=== PATIENT | male | born 1985 | race Caucasian/White ===

== ENCOUNTER 2016-11-01 22:54 | Inpatient (IN) | payer BC ==
[~2016-11-01] VITALS: Ht 182.9 cm; Wt 120.0 kg
[~2016-11-01 22:54] MED LIST: ACET-1311 PO; CTP1 PO; FLUO20CA35 PO; FLUO40CA8 PO; MTR800 PO; MULT-506 PO; NRN600 PO; ZFR8 PO
[2016-11-01] MEDS ORDERED: SODIUM CHLORIDE 0.9% 1000ML 1,000 ML IV STA (23:12)
[2016-11-01] MEDS ORDERED: DILTIAZEM HCL 5 MG/ML 5 ML VIAL IV STA (23:12)
--- NOTE | 2016-11-01 23:14 | EMERGENCY ROOM VISIT NOTE ---
History Report prepared by Lavelle: David Flanagan Under the Supervision of: Dr. Kory Garibay M.D. First contact with patient: 23:03 Chief Complaint: CARDIAC ASSESSMENT Stated Complaint: SVT/A-FIB History of Present Illness The patient is a 31 year old male with a history of atrial fibrillation who presents to the Emergency Room with complaints of an episode of supraventricular tachycardia and subsequent atrial fibrillation that occurred around 0500 this morning. The patient says that he was doing cardio this morning at the gym when supraventricular tachycardia kicked in. He states that it then triggered atrial fibrillation. The patient notes that he went into SVT at the gym yesterday as well. Currently, he says that he feels extremely uncomfortable and is short of breath, especially with movement. The patient states that he is exhausted easily. He says that he goes into SVT sometimes, but atrial fibrillation rarely. 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 He says that he does cardio every morning. The patient notes that he has been working a lot lately, and has not been sleeping much. He has sleep apnea. The patient states that he is on testosterone. He took Metoprolol tartrate 200 mg today, as well as Diltiazem 120 mg x2 today. The patient says that he is not on any blood thinners, and he denies any recent drug use. The patient has not had any major recent travels. He denies any pain, including abdominal pain or leg swelling. The patient has no history of blood clots, or family history of blood clots. He was admitted last year for rhabdomyolysis. He denies any recent diuretic use. Source of History: patient Onset: 0500 this morning Position: other (heart ) Quality: other (SVT, Afib) Timing: other (episode) Associated Symptoms: + SOB, + fatigue, No abdominal pain Note: Associated symptoms: Denies leg swelling. Review of Systems See HPI for pertinent positives & negatives. A total of 10 systems reviewed and were otherwise negative. Past Medical & Surgical Medical Problems: (1) Atrial fibrillation (2) Discomfort of both eyes (3) Eye irritation (4) major depreesive dis (5) past psych meds (6) Rhabdomyolysis (7) Rhabdomyolysis (8) Superficial punctate keratitis Family History FH: hypertension Heart disease Social History Smoking Status: Current Every Day Smoker Drug Use: other Marital Status: single Occupation Status: employed Current/Historical Medications Scheduled Fluoxetine (Prozac), 40 MG PO DAILY Fluoxetine (Prozac), 20 MG PO DAILY Gabapentin (Gabapentin), 600 MG PO AMPM Multivitamin (Multivitamin), 1 TAB PO DAILY Naltrexone Hcl (Naltrexone Hcl), 50 MG PO QPM Paroxetine (Paxil), 10 MG PO QAM Allergies Coded Allergies: No Known Allergies (Verified , 01/12/16) Physical Exam Vital Signs Date Time Temp Pulse Resp B/P (MAP) Pulse Ox O2 Delivery O2 Flow Rate FiO2 11/02/16 01:49 70 18 118/58 96 CPAP 11/02/16 00:42 75 18 128/68 96 Room Air 11/01/16 23:26 94 20 124/48 99 Room Air 11/01/16 23:08 111 11/01/16 22:59 36.9 72 20 138/77 96 Room Air Physical Exam GENERAL: Patient is tired and anxious appearing and in mild distress. Heavily muscled. HEENT: No acute trauma, normocephalic atraumatic, mucous membranes moist, no nasal congestion, no scleral icterus. NECK: No stridor, no adenopathy, no meningismus, trachea is midline. LUNGS: Mildly dyspneic. Clear to auscultation and equal bilaterally. No wheeze, no rhonchi. HEART: Tachycardic and irregular. No murmurs, rubs, gallops appreciated. ABDOMEN: Soft, nontender, bowel sounds positive, no masses appreciated, no peritonitis. BACK: No midline tenderness, no CVA tenderness EXTREMITIES: Normal motion all extremities, no cyanosis, no edema. NEUROLOGIC: Alert and oriented, no acute motor or sensory deficits, no focal weakness, cranial nerves grossly intact. SKIN: No rash, no jaundice, no diaphoresis. Medical Decision & Procedures ER Provider Diagnostic Interpretation: X ray results are stated below per my interpretation: Chest: 1 view: No infiltrate, no effusion, normal cardiac border. Laboratory Results 11/01/16 23:10 Red Blood Count 5.32, Mean Corpuscular Volume 86.1, Mean Corpuscular Hemoglobin 29.3, Mean Corpuscular Hemoglobin Concent 34.1, Mean Platelet Volume 9.1, Neutrophils (%) (Auto) 63.7, Lymphocytes (%) (Auto) 23.3, Monocytes (%) (Auto) 9.2, Eosinophils (%) (Auto) 2.7, Basophils (%) (Auto) 0.4, Neutrophils # (Auto) 7.64, Lymphocytes # (Auto) 2.79, Monocytes # (Auto) 1.10, Eosinophils # (Auto) 0.32, Basophils # (Auto) 0.05 11/01/16 23:10 11/02/16 00:30 Test 11/01/16 23:10 11/01/16 23:30 11/02/16 00:30 White Blood Count 11.98 K/uL (4.8-10.8) Red Blood Count 5.32 M/uL (4.7-6.1) Hemoglobin 15.6 g/dL (14.0-18.0) Hematocrit 45.8 % (42-52) Mean Corpuscular Volume 86.1 fL (80-100) Mean Corpuscular Hemoglobin 29.3 pg (25-34) Mean Corpuscular Hemoglobin Concent 34.1 g/dl (32-36) Platelet Count 404 K/uL (130-400) Mean Platelet Volume 9.1 fL (7.4-10.4) Neutrophils (%) (Auto) 63.7 % Lymphocytes (%) (Auto) 23.3 % Monocytes (%) (Auto) 9.2 % Eosinophils (%) (Auto) 2.7 % Basophils (%) (Auto) 0.4 % Neutrophils # (Auto) 7.64 K/uL (1.4-6.5) Lymphocytes # (Auto) 2.79 K/uL (1.2-3.4) Monocytes # (Auto) 1.10 K/uL (0.11-0.59) Eosinophils # (Auto) 0.32 K/uL (0-0.5) Basophils # (Auto) 0.05 K/uL (0-0.2) RDW Standard Deviation 48.6 fL (36.4-46.3) RDW Coefficient of Variation 15.4 % (11.5-14.5) Immature Granulocyte % (Auto) 0.7 % Immature Granulocyte # (Auto) 0.08 K/uL (0.00-0.02) Anion Gap 6.0 mmol/L (3-11) Est Creatinine Clear Calc Drug Dose 116.2 ml/min Estimated GFR () 91.5 Estimated GFR (Non- 79.0 BUN/Creatinine Ratio 14.9 (10-20) Calcium Level 9.0 mg/dl (8.5-10.1) Phosphorus Level 3.3 mg/dl (2.5-4.9) Creatine Kinase MB 11.5 ng/ml (0.5-3.6) Creatine Kinase MB Ratio (0-3.0) Troponin I 0.038 ng/ml (0-0.045) Urine Color YELLOW Urine Appearance CLEAR (CLEAR) Urine pH 5.5 (4.5-7.5) Urine Specific [place] 1.033 (1.000-1.030) Urine Protein 1+ (NEG) Urine Glucose (UA) NEG (NEG) Urine Ketones NEG (NEG) Urine Occult Blood TRACE (NEG) Urine Nitrite NEG (NEG) Urine Bilirubin NEG (NEG) Urine Urobilinogen NEG (NEG) Urine Leukocyte Esterase NEG (NEG) Urine WBC (Auto) 1-5 /hpf (0-5) Urine RBC (Auto) 0-4 /hpf (0-4) Urine Hyaline Casts (Auto) 1-5 /lpf (0-5) Urine Epithelial Cells (Auto) 5-10 /lpf (0-5) Urine Bacteria (Auto) NEG (NEG) Urine Opiates Screen NEG (NEG) Urine Methadone, Qualitative NEG (NEG) Urine Barbiturates NEG (NEG) Urine Phencyclidine (PCP) Level NEG (NEG) Ur Amphetamine/Methamphetamine NEG (NEG) MDMA (Ecstasy) Screen NEG (NEG) Urine Benzodiazepines Screen NEG (NEG) Urine Cocaine Metabolite NEG (NEG) Urine Marijuana (THC) NEG (NEG) Prothrombin Time 10.1 SECONDS (9.0-12.0) Prothromb Time International Ratio 0.9 (0.9-1.1) Activated Partial Thromboplast Time 33.1 SECONDS (21.0-31.0) Partial Thromboplastin Ratio 1.3 D-Dimer 300 ug/L FEU (0-500) Magnesium Level 1.9 mg/dl (1.8-2.4) Total Creatine Kinase 3122 U/L (39-308) Chemistry Specimen Hemolysis Laboratory results as reviewed by me. Medications Administered Medications (Trade) Dose Ordered Sig/Shahzad Route Start Time Stop Time Status Last Admin Dose Admin Sodium Chloride 1,000 ml @ 999 mls/hr Q1H1M STAT IV 11/01/16 23:12 11/02/16 00:12 DC 11/01/16 23:34 999 MLS/HR Diltiazem HCl (Cardizem Inj) 20 mg NOW STAT IV 11/01/16 23:12 11/01/16 23:13 DC 11/01/16 23:33 20 MG Sodium Chloride 2,000 ml @ 999 mls/hr Q2H1M STAT IV 11/02/16 01:35 11/02/16 03:35 DC 11/02/16 01:35 999 MLS/HR Sodium Chloride 1,000 ml @ 150 mls/hr Q6H40M IV 11/02/16 02:47 12/02/16 02:46 11/02/16 04:33 150 MLS/HR ECG Indication: palpitations Rate (beats per minute): 95 Rhythm: atrial fibrillation Findings: other (nonspecific ST changes, QTC 424) ED Course 2304: The patient was evaluated in room B9. A complete history and physical exam was performed. 2312: Ordered Cardizem Inj 20 mg IV, NSS 1000 ml @ 999 mls/hr IV. 0018: I reevaluated the patient and his heart rate is in the low 70s. He notes feeling a little better but still symptomatic. 0135: Ordered NSS 2000 ml @ 999 mls/hr IV. 0151: I reevaluated the patient and his heart rate is in the 60s and he is still in atrial fibrillation. He says that he still feels poorly. The patient verbally expressed understanding and agreement of the treatment plan. The patient will be evaluated for further treatment. 0159: I discussed the patient with Dr. Carolina - Gayla booth supervisor - he will evaluate the patient for further treatment. Medical Decision Differential: NSR, SVT, PACs, PVCs, Cardiac Dysrhythmia, Endocrine Dysfunction, Electrolyte/Metabolic Abnormality, Pulmonary Embolism, Infectious, GI, amongst other pathologies entertained. 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 He is very symptomatic with SHOB. No history pe, exam without DVT findings and with negative dimer will hold on CT PE as he has other reason for SHOB. Suspect with recent competition he was in and mild rhabdo he put himself in to svt/afib again. HR well controlled with cardizem though still somewhat symptomatic. MIld trop elevation though still WNL likely demand related. CK elevated and will need hydration. Reviewed with hospitalist who will bring in for further work-up and evaluation. Medication Reconcilliation Current Medication List: was personally reviewed by me Blood Pressure Screening Patient's blood pressure: Normal blood pressure Consults Time Called: 0150 Consulting Physician: Dr. Ge Shukla booth supervisor Returned Call: [phone] I discussed the patient with Dr. Ge Shukla booth supervisor - he will evaluate the patient for further treatment. Impression Primary Impression: Atrial fibrillation with rapid ventricular response Additional Impression: Rhabdomyolysis Scribe Attestation The scribe's documentation has been prepared under my direction and personally reviewed by me in its entirety. I confirm that the note above accurately reflects all work, treatment, procedures, and medical decision making performed by me. Departure Information Dispostion Being Evaluated By Hospitalist Referrals No Doctor, Assigned (PCP) Patient Instructions My [facility] Problem Qualifiers
[2016-11-01 23:27] LABS: BASO % 0.4 %; BASO ABS # 0.05 K/uL (0-0.2); COMPLETE YES; EOS % 2.7 %; HEMATOCRIT 45.8 % (42-52); IG% 0.7 %; LYMPH % 23.3 %; LYMPH ABS # 2.79 K/uL (1.2-3.4); MEAN CELL VOLUME 86.1 fL (80-100); MEAN CORPUSCULAR HEMOGLOBIN 29.3 pg (25-34); MEAN CORPUSCULAR HGB CONC 34.1 g/dl (32-36); MEAN PLATELET VOLUME 9.1 fL (7.4-10.4); MONO % 9.2 %; NEUT % 63.7 %; PLATELET COUNT 404 K/uL (130-400); RED BLOOD COUNT 5.32 M/uL (4.7-6.1); WHITE BLOOD COUNT 11.98 K/uL (4.8-10.8)
[2016-11-01] MEDS ORDERED: PARO1TAB27 PO (23:59)
[2016-11-02] MEDS ORDERED: NALT50TA5 PO (00:01)
[2016-11-02 00:17] LABS: BLOOD UREA NITROGEN 18 mg/dl (7-18); BUN/CREATININE RATIO 14.9 (10-20); CARBON DIOXIDE 28 mmol/L (21-32); CHLORIDE 107 mmol/L (98-107); PHOSPHORUS 3.3 mg/dl (2.5-4.9); SODIUM 141 mmol/L (136-145)
[2016-11-02 00:26] LABS: GLUCOSE 147 mg/dl (70-99)
[2016-11-02 01:23] LABS: INR 0.9 (0.9-1.1); PARTIAL THROMBOPLASTIN RATIO 1.3; PROTHROMBIN TIME (PATIENT) 10.1 SECONDS (9.0-12.0)
[2016-11-02 01:26] LABS: MAGNESIUM 1.9 mg/dl (1.8-2.4); POTASSIUM 4.2 mmol/L (3.5-5.1)
[2016-11-02] MEDS ORDERED: SODIUM CHLORIDE 0.9% 1000ML 2,000 ML IV STA (01:35)
[2016-11-02 02:29] LABS: URINE APPEARANCE CLEAR (CLEAR); URINE BILIRUBIN NEG (NEG); URINE COLOR YELLOW; URINE NITRITE NEG (NEG); URINE PH 5.5 (4.5-7.5); URINE SPECIFIC GRAVITY 1.033 (1.000-1.030); UROBILINOGEN NEG (NEG)
[2016-11-02 02:31] LABS: MANUAL MICROSCOPIC REQUIRED? NO; REVIEW REQ? NO
[2016-11-02 02:45] LABS: BENZODIAZEPINE, URINE NEG (NEG); COCAINE,URINE NEG (NEG); PHENCYCLIDINE, URINE NEG (NEG)
[2016-11-02] MEDS ORDERED: ALUMINUM/MAGNESIUM/SIMETH (MAALOX MAX) 30 ML UDC PO PRN (03:00)
[2016-11-02] MEDS ORDERED: ACETAMINOPHEN 325 MG TAB PO PRN (03:00)
[2016-11-02] MEDS ORDERED: MAGNESIUM HYDROXIDE SUSP 30 ML UDC PO PRN (03:00)
[2016-11-02] MEDS ORDERED: ONDANSETRON INJ 2 MG/ML 2 ML VIAL IV PRN (03:00)
[2016-11-02] MEDS ORDERED: DILTIAZEM HCL 30 MG TAB PO STA (03:23)
--- NOTE | 2016-11-02 04:00 | History and Physical ---
History & Physical Date & Time of Service: Nov 02, 2016 at 02:22 Chief Complaint: Svt/A-Fib Primary Care Physician: No Doctor, Assigned History of Present Illness Source: patient 31yo male with history of SVT and a. fib who presents with concern of a. fib. He states he was in his usual state of health until last evening when he was at the gym and felt like he had gone "into SVT." This occurred about 1730 in the afternoon. The SVT broke, but then he "knew he had gone into a. fib." He immediately felt poorly. After working out at the gym he went home and got ready for home. He did made it to work but ended up leaving early due to dyspnea on exertion. In the ER today at presentation he was found to be in a. fib and was given cardizem IV x 1 with improvement in HR. He was taking metoprolol and cardizem on a PRN basis up until about 1.5 years ago and he reports he was told he could stop the medications. He follows with Dr. Saucedo - [facility]. Despite his HR now being <75 he "continues to feel sluggish." He reports chronic fatigue despite compliance with CPAP for MARIE. He denies episodes of a. fib over the last 1-2 months. He had an episode of suspected SVT last week. Still continues to work out and body-build. He works out twice a day. He admits to using testosterone injections at least twice weekly. Last injection was on Thursday of this week. Past Medical/Surgical History PMH: 1. SVT 2. paroxysmal a. fib 3. MARIE on CPAP 4. 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) Immunizations History of Influenza Vaccine: Yes Influenza Vaccine Date: Dec 16, 2012 History of Tetanus Vaccine?: Yes Tetanus Immunization Date: Mar 17, 2011 History of Pneumococcal: No History of Hepatitis B Vaccine: Unknown Multi-Drug Resistant Organisms History of MDRO: No Allergies Coded Allergies: No Known Allergies (Verified , 01/12/16) Home Medications Scheduled Fluoxetine (Prozac), 40 MG PO DAILY Fluoxetine (Prozac), 20 MG PO DAILY Gabapentin (Gabapentin), 600 MG PO AMPM Multivitamin (Multivitamin), 1 TAB PO DAILY Naltrexone Hcl (Naltrexone Hcl), 50 MG PO QPM Paroxetine (Paxil), 10 MG PO QAM Review of Systems Constitutional: + weakness, + fatigue, No fever, No chills, No weight loss Eyes: No worsening of vision ENT: + nasal symptoms, No sore throat Respiratory: + dyspnea on exertion (today, when he converted to a. fib), No cough Cardiovascular: No chest pain, No orthopnea, No edema Abdomen: No nausea, No vomiting, No diarrhea Musculoskeletal: + joint pain, No muscle pain Genitourinary - Male: No dysuria Neurologic: No numbness/tingling Psychiatric: + depression symptoms, + anxiety Endocrine: No excessive urination Hematologic / Lymphatic: No abnormal bleeding/bruising Integumentary: No rash Physical Exam Vital Signs Date Time Temp Pulse Resp B/P (MAP) Pulse Ox O2 Delivery O2 Flow Rate FiO2 11/02/16 01:49 70 18 118/58 96 CPAP 11/02/16 00:42 75 18 128/68 96 Room Air 11/01/16 23:26 94 20 124/48 99 Room Air 11/01/16 23:08 111 11/01/16 22:59 36.9 72 20 138/77 96 Room Air General Appearance: WD/WN, no apparent distress, + pertinent finding (muscular) Head: normocephalic, atraumatic Eyes: PERRL ENT: pharynx normal Neck: no JVD Respiratory/Chest: lungs clear, no respiratory distress, no accessory muscle use Cardiovascular: no gallop, no murmur, normal peripheral pulses, + irregularly irregular Abdomen/GI: normal bowel sounds, non tender, soft, no organomegaly Extremities/Musculoskelatal: no pedal edema Neurologic/Psych: no motor/sensory deficits, alert, normal reflexes, oriented x 3 Skin: no rash Lymphatic: + cervical node abnormality (shotty nodes b/l ) Diagnostics Laboratory Results Results Past 24 Hours Test 11/01/16 23:10 11/02/16 00:30 11/02/16 02:06 Range/Units White Blood Count 11.98 4.8-10.8 K/uL Red Blood Count 5.32 4.7-6.1 M/uL Hemoglobin 15.6 14.0-18.0 g/dL Hematocrit 45.8 42-52 % Mean Corpuscular Volume 86.1 80-100 fL Mean Corpuscular Hemoglobin 29.3 25-34 pg Mean Corpuscular Hemoglobin Concent 34.1 32-36 g/dl Platelet Count 404 130-400 K/uL Mean Platelet Volume 9.1 7.4-10.4 fL Neutrophils (%) (Auto) 63.7 % Lymphocytes (%) (Auto) 23.3 % Monocytes (%) (Auto) 9.2 % Eosinophils (%) (Auto) 2.7 % Basophils (%) (Auto) 0.4 % Neutrophils # (Auto) 7.64 1.4-6.5 K/uL Lymphocytes # (Auto) 2.79 1.2-3.4 K/uL Monocytes # (Auto) 1.10 0.11-0.59 K/uL Eosinophils # (Auto) 0.32 0-0.5 K/uL Basophils # (Auto) 0.05 0-0.2 K/uL RDW Standard Deviation 48.6 36.4-46.3 fL RDW Coefficient of Variation 15.4 11.5-14.5 % Immature Granulocyte % (Auto) 0.7 % Immature Granulocyte # (Auto) 0.08 0.00-0.02 K/uL Sodium Level 141 136-145 mmol/L Potassium Level 4.2 3.5-5.1 mmol/L Chloride Level 107 98-107 mmol/L Carbon Dioxide Level 28 21-32 mmol/L Anion Gap 6.0 3-11 mmol/L Blood Urea Nitrogen 18 7-18 mg/dl Creatinine 1.20 0.60-1.40 mg/dl Est Creatinine Clear Calc Drug Dose 116.2 ml/min Estimated GFR () 91.5 Estimated GFR (Non- 79.0 BUN/Creatinine Ratio 14.9 10-20 Random Glucose 147 70-99 mg/dl Calcium Level 9.0 8.5-10.1 mg/dl Phosphorus Level 3.3 2.5-4.9 mg/dl Magnesium Level 1.9 1.8-2.4 mg/dl Total Creatine Kinase 3122 39-308 U/L Creatine Kinase MB 11.5 0.5-3.6 ng/ml Creatine Kinase MB Ratio 0-3.0 Troponin I 0.038 0-0.045 ng/ml Prothrombin Time 10.1 9.0-12.0 SECONDS Prothromb Time International Ratio 0.9 0.9-1.1 Activated Partial Thromboplast Time 33.1 21.0-31.0 SECONDS Partial Thromboplastin Ratio 1.3 D-Dimer 300 0-500 ug/L FEU Chemistry Specimen Hemolysis Diagnostic Radiology cxr - my reading - no infiltrates or edema; unchanged from previous cxr EKG EKG - a. fib with rate of about 95-100; no acute ST changes; LVH Impression Assessment and Plan 31yo male with h/o polysubstance abuse, illicit use of parenteral testosterone for body-building purposes, and SVT / paroxysmal a. fib presenting with recurrent paroxysmal a. fib. 1. paroxysmal a. fib - rates already improved in the ER. Mag/K normal. TSH pending. No evidence of ACS. Tox screen pending to r/o illicit drug use. Has not had an echo in several years and previous echo showed depressed EF. Thus, repeat echo ordered. Will place on cardizem 30mg q6h for now. Hopefully he will convert to SNR. Control the MARIE with CPAP. He mentioned poor sleep as of late which could be contributing as well. 2. MARIE - cont home CPAP. Need for repeat sleep study? 3. fatigue - check TSH in am. Cardiac issues could be contributing; testosterone injections, when his testosterone levels are plummeting, could be contributing as well. 4. rhabdomyolysis - hydrate, repeat CPK with troponin in the AM. Rhabdo likely 2nd to muscle breakdown from extreme weight lifting. 5. chronic systolic CHF - compensated. Repeat echo in am. 6. DVT proph - lovenox once daily. 7. leukocytosis - cause? due to illicit drug use/steroids/other?? Repeat cbc 1-2 days for stability. Needs to quit use of parenteral testosterone. Level of Care Telemetry Resuscitation Status FULL RESUSCITATION VTE Prophylaxis Risk Level: Moderate Given or contraindicated: Enoxaparin (Lovenox)SQ Social Service Consult None Apply Note total time about 55 minutes Additional Copies To Ector Saucedo,
[2016-11-02 04:19] VITALS: BP 154/68; PULSE 77; TEMP 37.2; O2SAT 95; Ht 182.9 cm; Wt 120.0 kg
[2016-11-02] MEDS: SODIUM CHLORIDE 0.9% 1000ML 1,000 ML IV SCH ×2 (04:33→10:24)
--- NOTE | 2016-11-02 06:22 | DIAGNOSTIC IMAGING REPORT ---
CHEST ONE VIEW PORTABLE CLINICAL HISTORY: Atypical chest pain COMPARISON STUDY: 01/12/2016 FINDINGS: The heart is at the upper limits of normal in size given the AP portable technique. There is no failure. There is no focal pulmonary consolidation. There are no pleural effusions.[ IMPRESSION: No active disease in the chest. Electronically signed by: Bonilla An M.D. 11/02/2016 6:21 AM Dictated Date/Time: 11/02/2016 6:20 AM
[2016-11-02 08:44] VITALS: O2SAT 95
[2016-11-02] MEDS ORDERED: ENOXAPARIN 40 MG/0.4 ML SYR SC SCH (09:00)
[2016-11-02] MEDS ORDERED: FLUOXETINE HCL 20 MG CAP PO SCH ×2 (09:00)
[2016-11-02] MEDS ORDERED: GABAPENTIN 600 MG TAB PO SCH (09:00)
[2016-11-02] MEDS ORDERED: MULTIVITAMIN TAB PO SCH (09:00)
[2016-11-02 09:33] LABS: THYROID STIMULATING HORMONE 1.54 uIu/ml (0.300-4.500)
[2016-11-02] MEDS ORDERED: DILTIAZEM HCL 30 MG TAB PO SCH (10:00)
--- NOTE | 2016-11-02 10:10 | ECHOCARDIOGRAM REPORT ---
*NOTICE TO RECEIVING [employer] This information is strictly Confidential and protected under [place] law. [place] law prohibits you from making any further disclosure of this information unless further disclosure is expressly permitted by the written consent of the person to whom it pertains or is authorized by law. A general authorization for the release of medical or other information is not sufficient for this purpose. Hospital accepts no responsibility if the information is made available to any other person, INCLUDING THE PATIENT. Interpretation Summary * Name: LYNN ARNOLD Study Date: 11/02/2016 07:11 AM BP: 154/68 mmHg * Patient Location: [facility] HR: 77 * : 1985 (M/d/yyyy) Gender: Male Height: 72 in * Age: 31 yrs Ethnicity: Weight: 260 lb * Ordering Physician: Brandon Carolina * Referring Physician: Self, Referred * Performed By: Margaux Harper RDCS * * Reason For Study: A-fib, endocarditis * BSA: 2.4 m2 * -- Conclusions -- * 1. Normal LV size and wall thickness. * 2. Normal LV systolic function. LVEF 50-55%. No regional wall motion abnormalities. * 3. Normal RV size and function. * 4. No clear evidence of vegetations or other findings suggestive of endocarditis. * 5. No prior studies for comparison. Procedure Details * A complete two-dimensional transthoracic echocardiogram was performed (2D, M-mode, Doppler and color flow Doppler). Left Ventricle * The left ventricle is grossly normal size. * There is normal left ventricular wall thickness. * Ejection Fraction = 50-55%. Right Ventricle * The right ventricle is grossly normal size. * The right ventricular systolic function is normal as assessed by tricuspid annular plane systolic excursion (TAPSE) (normal >1.5 cm). Atria * The left atrial size is normal. * Right atrial size is normal. * No ASD detected; PFO is not assessed. Mitral Valve * The mitral valve leaflets appear thickened, but open well. * Mitral stenosis is absent. * There is mild mitral regurgitation. Tricuspid Valve * The tricuspid valve is not well visualized, but is grossly normal. * Tricuspid stenosis is absent. * There is trace tricuspid regurgitation. Aortic Valve * The aortic valve opens well. * The aortic valve is trileaflet. * No hemodynamically significant valvular aortic stenosis. * There is no significant aortic regurgitation. Pulmonic Valve * The pulmonary valve is inadequately visualized, but the Doppler data is adequate for interpretation. * Pulmonic stenosis is absent. * There is no significant pulmonary regurgitation. Great Vessels * The aortic root and proximal ascending aorta are normal sized. Pericardium/Pleural * There is no pericardial effusion. Great Vessels * IVC >2.1 cm, >50% change with respiration. Est RA 8 mmHg. Left Ventricular Diastolic Function * No diastolic dysfunction. MMode 2D Measurements and Calculations IVSd 0.85 cm LVIDd 6.3 cm LVIDs 4.6 cm LVPWd 1.1 cm IVS/LVPW 0.76 FS 28.0 % EDV(Teich) 203.8 ml ESV(Teich) 95.3 ml EF(Teich) 53.2 % EDV(cubed) 254.3 ml ESV(cubed) 94.8 ml EF(cubed) 62.7 % LV mass(C)d 264.4 grams LV mass(C)dI 111.0 grams/m\S\2 CO(Teich) 8.5 l/min CI(Teich) 3.6 l/min/m\S\2 SV(Teich) 108.5 ml SI(Teich) 45.5 ml/m\S\2 CO(cubed) 12.4 l/min CI(cubed) 5.2 l/min/m\S\2 SV(cubed) 159.6 ml SI(cubed) 67.0 ml/m\S\2 Ao root diam 3.8 cm Ao root area 11.4 cm\S\2 ACS 2.3 cm LA dimension 4.5 cm asc Aorta Diam 3.1 cm LA/Ao 1.2 LVOT diam 2.1 cm LVOT area 3.4 cm\S\2 LVAd ap4 47.8 cm\S\2 LVLd ap4 9.9 cm EDV(MOD-sp4) 191.0 ml LVAs ap4 30.5 cm\S\2 LVLs ap4 8.2 cm ESV(MOD-sp4) 94.2 ml EF(MOD-sp4) 50.7 % LVAd ap2 43.8 cm\S\2 LVLd ap2 10.0 cm EDV(MOD-sp2) 163.0 ml LVAs ap2 27.6 cm\S\2 LVLs ap2 8.3 cm ESV(MOD-sp2) 78.6 ml EF(MOD-sp2) 51.8 % CO(MOD-sp4) 7.6 l/min CI(MOD-sp4) 3.2 l/min/m\S\2 SV(MOD-sp4) 96.8 ml SI(MOD-sp4) 40.6 ml/m\S\2 CO(MOD-sp2) 6.6 l/min CI(MOD-sp2) 2.8 l/min/m\S\2 SV(MOD-sp2) 84.4 ml SI(MOD-sp2) 35.4 ml/m\S\2 Doppler Measurements and Calculations MV E max ruperto 139.2 cm/sec MV A max ruperto 62.6 cm/sec MV E/A 2.2 MV P1/2t max ruperto 180.5 cm/sec MV P1/2t 68.1 msec MVA(P1/2t) 3.2 cm\S\2 MV dec slope 776.9 cm/sec\S\2 MV dec time 0.16 sec Ao V2 max 148.9 cm/sec Ao max PG 8.9 mmHg Ao max PG (full) 4.3 mmHg ERASTO(V,A) 2.5 cm\S\2 ERASTO(V,D) 2.5 cm\S\2 LV V1 max PG 4.6 mmHg LV V1 max 107.2 cm/sec PA V2 max 126.2 cm/sec PA max PG 6.4 mmHg PA acc slope 499.8 cm/sec\S\2 PA acc time 0.15 sec TR max ruperto 217.2 cm/sec PA pr(Accel) 10.9 mmHg
--- NOTE | 2016-11-02 10:12 | Discharge Instructions ---
Discharge Instructions Date of Service Nov 02, 2016. Admission Reason for Admission: Atrial Fibrillation With Rapid Ventricular Respons Discharge Discharge Diagnosis / Problem: afib with conversion to normal rhythm Discharge Goals Goal(s): Diagnostic testing, Therapeutic intervention Activity Recommendations Activity Limitations: resume your previous activity . Current Hospital Diet Patient's current hospital diet: AHA Diet (Heart Healthy) Discharge Diet Recommended Diet: Regular Diet (limit cafiene and or energy drinks) Pending Studies Studies pending at discharge: no Laboratory Results Hemoglobin A1c Test 11/02/16 08:49 Range/Units Medical Emergencies . Who to Call and When: Medical Emergencies: If at any time you feel your situation is an emergency, please call 911 immediately. . Non-Emergent Contact Non-Emergency issues call your: Primary Care Provider Call Non-Emergent contact if: temperature is above 101, your pain is unusual for you . . "Provider Documentation" section prepared by Ottoniel Wheatley. . VTE Core Measure Inpt VTE Proph given/why not?: Enoxaparin (Lovenox)SQ
[2016-11-02] MEDS ORDERED: DLCSR120 PO (10:15)
[2016-11-02] MEDS ORDERED: PAROXETINE 20 MG TAB PO SCH (10:45)
[2016-11-02] MEDS ORDERED: DILTIAZEM HCL 120 MG CAPCR PO SCH (11:00)
[2016-11-02 11:10] VITALS: BP 154/68; PULSE 77; TEMP 37.2; O2SAT 95
--- NOTE | 2016-11-02 13:32 | Discharge Summary ---
Discharge Summary Date of Service Nov 02, 2016. Discharge Summary Admission Date: Nov 02, 2016 at 02:51 Discharge Date: Nov 02, 2016 Discharge Disposition: Home Principal Diagnosis: afib with conversion to sinus, mild rhabdo assocaited with weight lifting Immunizations: Have You Had Influenza Vaccine: Yes Influenza Vaccine Date: Dec 16, 2012 History of Tetanus Vaccine?: Yes Tetanus Immunization Date: Mar 17, 2011 History of Pneumococcal: No History of Hepatitis B Vaccine: Unknown Medication Reconciliation New Medications: Diltiazem HCl (Diltiazem HCl ER) 120 Mg Caper 120 MG PO DAILY, #30 DOSE 3 Refills Continued Medications: Fluoxetine (Prozac) 40 Mg Cap 40 MG PO DAILY, CAP TAKE WITH 20MG = 60MG QAM Fluoxetine (Prozac) 20 Mg Cap 20 MG PO DAILY, CAP TAKE WITH 40MG = 60MG QAM Gabapentin (Gabapentin) 600 Mg Tab 600 MG PO AMPM Multivitamin (Multivitamin) Tab 1 TAB PO DAILY, TAB Naltrexone Hcl (Naltrexone Hcl) 50 Mg Tab 50 MG PO QPM Paroxetine (Paxil) 20 Mg Tab 10 MG PO QAM, TAB Discharge Exam Review of Systems: Constitutional: No fever, No chills Respiratory: No cough, No sputum, No wheezing, No shortness of breath Cardiovascular: No chest pain, No orthopnea, No edema Abdomen: No pain, No nausea, No vomiting, No diarrhea Physical Exam: General Appearance: WD/WN, no apparent distress Neck: supple, no JVD Respiratory/Chest: chest non-tender, lungs clear, normal breath sounds Cardiovascular: regular rate, rhythm, no murmur Abdomen / GI: normal bowel sounds, non tender, soft Neurologic/Psychiatric: alert, oriented x 3 Hospital Course 31yo male with h/o polysubstance abuse, illicit use of parenteral testosterone for body-building purposes, and SVT / paroxysmal a. fib presenting with recurrent paroxysmal a. fib. converted to nsr in ER, remained in sinus, took diltiazem cd 120 before leaving, instructed on good hydration and to consider not lifting for a week paroxysmal a. fib - NSR restored, oral cardizem cd 120 Mag/K normal. TSH normal. No evidence of ACS, mildly elevated ck Tox screen pending to r/o illicit drug use. Previous echo showed depressed EF. repeat echo normal, no veg, esr normal MARIE with CPAP. rhabdomyolysis - hydrate, reinforced good hydration at home continue depression medications DVT proph - lovenox once daily. . Total Time Spent: Greater than 30 minutes This includes examination of the patient, discharge planning, medication reconciliation, and communication with other providers. Discharge Instructions Please refer to the electronic Patient Visit Report (Discharge Instructions) for additional information.
[2016-11-02] MEDS ORDERED: NALTREXONE HCL 50 MG TAB PO SCH (21:00)
[2016-11-03 07:10] LABS: ESTIMATED AVERAGE GLUCOSE 123 mg/dl; HA1C FLAG Normal (Normal)
[2016-11-03] MEDS ORDERED: ASCA500 PO (19:14)
[2016-11-03] MEDS ORDERED: OMEG10007 PO (19:14)
== END 2016-11-02 11:39 | disposition home or self-care (01) | DRG 309 ==
LOC: C.EDB 22:56 → C.2T 11-02 02:51 → ENRESERV 11-02 03:19
PROVIDERS: ADMIT Internal Medicine; ATTEND Internal Medicine
DX: I48.0 Paroxysmal atrial fibrillation (principal); M62.82 Rhabdomyolysis; F17.210 Nicotine dependence, cigarettes, uncomplicated; G47.33 Obstructive sleep apnea (adult) (pediatric); Z99.89 Dependence on other enabling machines and devices; F32.9 Major depressive disorder, single episode, unspecified; D72.829 Elevated white blood cell count, unspecified; Z79.899 Other long term (current) drug therapy; Z87.898 Personal history of other specified conditions; I47.1 Supraventricular tachycardia; Z82.49 Family history of ischemic heart disease and other diseases of the circulatory system

== ENCOUNTER 2016-11-03 18:41 | Emergency (ER) | payer BC ==
[~2016-11-03] VITALS: Ht 182.9 cm; Wt 120.0 kg
[~2016-11-03 18:41] MED LIST changes: -ACET-1311 PO; -CTP1 PO; +DLCSR120 PO; -MTR800 PO; +NALT50TA5 PO; +PARO1TAB27 PO; -ZFR8 PO
[2016-11-03 18:49] VITALS: Ht 182.9 cm; Wt 120.0 kg
[2016-11-03] MEDS ORDERED: ADENOSINE IV SOLN 3 MG/ML 2 ML VIAL ONE ×2 (18:52→18:54)
[2016-11-03] MEDS ORDERED: SODIUM CHLORIDE 0.9% 1000ML 1,000 ML IV STA (18:54)
[2016-11-03 18:55] VITALS: O2SAT 100
--- NOTE | 2016-11-03 19:12 | EMERGENCY ROOM VISIT NOTE ---
History Report prepared by Alexibaleah: Glenna Mitchell Under the Supervision of: Dr. Marquis Bianchi D.O. First contact with patient: 18:48 Chief Complaint: TACHYCARDIA Stated Complaint: SUT History of Present Illness The patient is a 31 year old male who presents to the Emergency Room with complaints of persistent tachycardia that started approximately 1 hour prior to arrival. He has a history of supraventricular tachycardia and atrial fibrillation. The SVT started when he was 6 years old. He has never had to be shocked out of his atrial fibrillation. The patient complains of feeling short of breath, exhausted and experiencing pressure in his chest. He states he tried taking Cardizem, but it provided no relief. His Registered Medical Assistant is Dr. Saucedo with [facility]. He does not currently take any blood thinners. He denies any recent exertion or spending excessive time outdoors in the hot weather. The patient admits to using supplemental Testosterone as he lifts weights regularly. He denies his urine being dark in color recently or any other urinary symptoms. 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 A total of 10 systems reviewed and were otherwise negative. Past Medical & Surgical Medical Problems: (1) Atrial fibrillation (2) Discomfort of both eyes (3) Eye irritation (4) major depreesive dis (5) past psych meds (6) Rhabdomyolysis (7) Rhabdomyolysis (8) Superficial punctate keratitis Family History FH: hypertension Heart disease Social History Smoking Status: Never Smoker Alcohol Use: occasionally Drug Use: other Marital Status: single Housing Status: lives with family Occupation Status: employed Current/Historical Medications Scheduled Ascorbic Acid (Vitamin C), 1,000 MG PO DAILY Diltiazem HCl (Diltiazem HCl ER), 120 MG PO DAILY Fish Oil (Cecil-3), 1 CAP PO DAILY Fluoxetine (Prozac), 60 MG PO DAILY Gabapentin (Gabapentin), 600 MG PO AMPM Multivitamin (Multivitamin), 1 TAB PO DAILY Naltrexone Hcl (Naltrexone Hcl), 50 MG PO QPM Paroxetine (Paxil), 10 MG PO QAM Allergies Coded Allergies: No Known Allergies (Verified , 11/03/16) Physical Exam Vital Signs Date Time Temp Pulse Resp B/P (MAP) Pulse Ox O2 Delivery O2 Flow Rate FiO2 11/03/16 19:44 85 16 141/71 99 Room Air 11/03/16 19:24 90 20 142/92 99 Room Air 11/03/16 19:19 91 11/03/16 18:55 96 18 135/74 100 Room Air 11/03/16 18:55 100 Room Air 11/03/16 18:49 30 137/91 97 Room Air Physical Exam GENERAL: Patient is awake, alert, very anxious appearing, in no acute distress , patient is resting comfortably EYES: The conjunctivae are clear. The pupils are round and reactive. EARS, NOSE, MOUTH AND THROAT: The nose is without any evidence of any deformity. Mucous membranes are moist tongue is midline NECK: The neck is nontender and supple. RESPIRATORY: Normal respiratory effort is noted there is no evidence of wheezing rhonchi or rales CARDIOVASCULAR: Heart sounds are tachycardic and but regular, no definite murmurs appreciated to auscultation. GASTROINTESTINAL: The abdomen is soft. Bowel sounds are present in all quadrants. Abdomen is nontender MUSCULOSKELETAL/EXTREMITIES: There is no evidence of gross deformity full range of motion is noted in the hips and shoulders SKIN: Skin was cool and diaphoretic, no pedal edema noted. There is no obvious evidence of any rash. There are no petechiae, pallor or cyanosis noted. NEUROLOGIC: Patient is awake alert and oriented x3 Medical Decision & Procedures Laboratory Results 11/03/16 18:55 Red Blood Count 5.72, Mean Corpuscular Volume 84.8, Mean Corpuscular Hemoglobin 27.4, Mean Corpuscular Hemoglobin Concent 32.4, Mean Platelet Volume 8.9, Neutrophils (%) (Auto) 67.6, Lymphocytes (%) (Auto) 23.1, Monocytes (%) (Auto) 6.2, Eosinophils (%) (Auto) 2.4, Basophils (%) (Auto) 0.3, Neutrophils # (Auto) 6.63, Lymphocytes # (Auto) 2.27, Monocytes # (Auto) 0.61, Eosinophils # (Auto) 0.24, Basophils # (Auto) 0.03 11/03/16 18:55 Test 11/03/16 18:54 11/03/16 18:55 Creatine Kinase MB Ratio (0-3.0) White Blood Count 9.82 K/uL (4.8-10.8) Red Blood Count 5.72 M/uL (4.7-6.1) Hemoglobin 15.7 g/dL (14.0-18.0) Hematocrit 48.5 % (42-52) Mean Corpuscular Volume 84.8 fL (80-100) Mean Corpuscular Hemoglobin 27.4 pg (25-34) Mean Corpuscular Hemoglobin Concent 32.4 g/dl (32-36) Platelet Count 399 K/uL (130-400) Mean Platelet Volume 8.9 fL (7.4-10.4) Neutrophils (%) (Auto) 67.6 % Lymphocytes (%) (Auto) 23.1 % Monocytes (%) (Auto) 6.2 % Eosinophils (%) (Auto) 2.4 % Basophils (%) (Auto) 0.3 % Neutrophils # (Auto) 6.63 K/uL (1.4-6.5) Lymphocytes # (Auto) 2.27 K/uL (1.2-3.4) Monocytes # (Auto) 0.61 K/uL (0.11-0.59) Eosinophils # (Auto) 0.24 K/uL (0-0.5) Basophils # (Auto) 0.03 K/uL (0-0.2) RDW Standard Deviation 48.3 fL (36.4-46.3) RDW Coefficient of Variation 15.8 % (11.5-14.5) Immature Granulocyte % (Auto) 0.4 % Immature Granulocyte # (Auto) 0.04 K/uL (0.00-0.02) Anion Gap 8.0 mmol/L (3-11) Est Creatinine Clear Calc Drug Dose 117.1 ml/min Estimated GFR () 91.5 Estimated GFR (Non- 79.0 BUN/Creatinine Ratio 13.0 (10-20) Calcium Level 9.3 mg/dl (8.5-10.1) Magnesium Level mg/dl (1.8-2.4) Total Bilirubin 0.4 mg/dl (0.2-1) Aspartate Amino Transf (AST/SGOT) U/L (15-37) Alanine Aminotransferase (ALT/SGPT) 99 U/L (12-78) Alkaline Phosphatase 81 U/L (45-117) Total Creatine Kinase U/L (39-308) Creatine Kinase MB 9.9 ng/ml (0.5-3.6) Troponin I 0.027 ng/ml (0-0.045) Total Protein 7.7 gm/dl (6.4-8.2) Albumin 3.4 gm/dl (3.4-5.0) Globulin 4.3 gm/dl (2.5-4.0) Albumin/Globulin Ratio 0.8 (0.9-2) Thyroid Stimulating Hormone (TSH) 3.450 uIu/ml (0.300-4.500) Laboratory results per my review. Medications Administered Medications (Trade) Dose Ordered Sig/Shahzad Route Start Time Stop Time Status Last Admin Dose Admin Adenosine (Adenosine IV) 3 mg STK-MED ONCE .ROUTE 11/03/16 18:52 11/03/16 18:53 DC 11/03/16 19:01 6 MG Sodium Chloride 1,000 ml @ 999 mls/hr Q1H1M STAT IV 11/03/16 18:54 11/03/16 19:54 DC 11/03/16 18:55 999 MLS/HR Adenosine (Adenosine IV) 3 mg STK-MED ONCE .ROUTE 11/03/16 18:54 11/03/16 18:55 DC 11/03/16 19:01 6 MG ECG Indication: tachycardia Rate (beats per minute): 205 Rhythm: SVT Findings: RBBB (RBBB pattern favored), other (Underlying QRS complex is widened , SVT with abarency is favored) Change: 2nd EKG on November 03, 2016: Normal Sinus Rhythm, rate of 92, no ectopy, no acute ST segment abnormalities, no change from December 28, 2012. ED Course 1848: The patient was evaluated in room B1. A complete history and physical examination were performed. 1851: Adenosine 3 mg IV. 1853: Adenosine 3 mg IV, NSS 1000 ml @ 999 mls/hr IV. 2010: I reevaluated the patient. He is feeling better. I discussed his results and discharge instructions and he verbalized complete understanding and agreement. Medical Decision Prior records/ancillary studies reviewed. Triage Nursing notes reviewed. The patient's history was concerning for palpitations. Differential diagnosis: Etiologies such as premature contractions, electrolyte abnormality, cardiac dysrhythmia, thyroid dysfunction, pulmonary embolism, infection, gastrointestinal, as well as others were entertained. The patient is a 31-year-old male who presented to the emergency department for an evaluation of palpitations. The patient has a history of SVT but he was also recently admitted to our facility for atrial fibrillation. The patient has a history of rhabdomyolysis. His laboratory studies revealed some degree of hemolysis and they were unable to obtain a CPK and he refused any further laboratory draws. The patient initially was treated with Valsalva maneuver but this failed so he was given a dental seen. The patient's EKG initially showed a wide complex tachycardia of 200 beats per minute. Reviewing the patient's previous EKGs I felt this was likely SVT with aberrancy rather than a ventricular tachycardia. His follow-up EKG showed a normal QRS duration and appeared to be more consistent with his most recent EKGs. The patient did not wish to have any further testing and did not wish to be evaluated by the hospitalist for further inpatient management. I discussed with him the possibility that he was likely back in rhabdomyolysis. He states that his urine has been clear. He was encouraged to drink plenty clear liquids and rest. He was also encouraged to avoid any further supplements to his workout regimen and follow-up with his family doctor within the next few days for reevaluation. 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 Medication Reconcilliation Current Medication List: was personally reviewed by me Blood Pressure Screening Patient's blood pressure: Elevated blood pressure Blood pressure disposition: Elevated BP felt to be situational Impression Primary Impression: SVT (supraventricular tachycardia) Additional Impression: Rhabdomyolysis Critical Care I have personally spent greater than 35 minutes of critical care time in the direct management of this patient. This includes bedside care, interpretation of diagnostic studies, and testing, discussion with consultants, patient, and family members, and other required patient management activities. This 35 minutes is in excess of all separately billable procedures. Scribe Attestation The scribe's documentation has been prepared under my direction and personally reviewed by me in its entirety. I confirm that the note above accurately reflects all work, treatment, procedures, and medical decision making performed by me. Departure Information Dispostion Home / Self-Care Referrals No Doctor, Assigned (PCP) Patient Instructions ED Valsalva Maneuver, [facility], Rhabdomyolysis, Treatment for Supraventricular Tachycardia SVT Additional Instructions Follow-up with your family doctor soon as possible. Continue to drink plenty clear liquids. Rest and avoid any strenuous activity working out or extreme heat. Return to the emergency Department immediately if symptoms change worsen or the need arises. Problem Qualifiers Additional Impression: Rhabdomyolysis Rhabdomyolysis type: non-traumatic Qualified Codes: M62.82 - Rhabdomyolysis
[2016-11-03 19:13] LABS: BASO % 0.3 %; BASO ABS # 0.03 K/uL (0-0.2); COMPLETE YES; EOS % 2.4 %; HEMATOCRIT 48.5 % (42-52); IG% 0.4 %; LYMPH % 23.1 %; LYMPH ABS # 2.27 K/uL (1.2-3.4); MEAN CELL VOLUME 84.8 fL (80-100); MEAN CORPUSCULAR HEMOGLOBIN 27.4 pg (25-34); MEAN CORPUSCULAR HGB CONC 32.4 g/dl (32-36); MEAN PLATELET VOLUME 8.9 fL (7.4-10.4); MONO % 6.2 %; NEUT % 67.6 %; PLATELET COUNT 399 K/uL (130-400); RED BLOOD COUNT 5.72 M/uL (4.7-6.1); WHITE BLOOD COUNT 9.82 K/uL (4.8-10.8)
[2016-11-03] MEDS ORDERED: ASCA500 PO (19:14)
[2016-11-03] MEDS ORDERED: OMEG10007 PO (19:14)
[2016-11-03 19:44] VITALS: BP 141/71; PULSE 85; O2SAT 99
[2016-11-03 19:47] LABS: ALB/GLOB RATIO 0.8 (0.9-2); ALKALINE PHOSPHATASE 81 U/L (45-117); ALT/SGPT 99 U/L (12-78); BLOOD UREA NITROGEN 16 mg/dl (7-18); CALCIUM 9.3 mg/dl (8.5-10.1); CARBON DIOXIDE 28 mmol/L (21-32); CHLORIDE 103 mmol/L (98-107); GLUCOSE 109 mg/dl (70-99); SODIUM 139 mmol/L (136-145)
== END 2016-11-03 20:21 | disposition home or self-care (01) ==
LOC: C.EDB 18:42
DX: I47.1 Supraventricular tachycardia (principal); M62.82 Rhabdomyolysis; I48.91 Unspecified atrial fibrillation; F32.9 Major depressive disorder, single episode, unspecified; Z82.49 Family history of ischemic heart disease and other diseases of the circulatory system; Z79.899 Other long term (current) drug therapy

== ENCOUNTER 2016-11-05 12:52 | Emergency (ER) | payer BC ==
[~2016-11-05 12:52] MED LIST changes: +ASCA500 PO; -FLUO40CA8 PO; +OMEG10007 PO
[2016-11-05 13:21] VITALS: TEMP 36.7
[2016-11-05 13:25] VITALS: O2SAT 95
[2016-11-05] MEDS ORDERED: ADENOSINE IV SOLN 3 MG/ML 2 ML VIAL ONE (13:27)
[2016-11-05] MEDS ORDERED: SODIUM CHLORIDE 0.9% 1000ML 1,000 ML IV STA (13:33)
--- NOTE | 2016-11-05 13:44 | EMERGENCY ROOM VISIT NOTE ---
History Report prepared by Lavelle: David Benites Under the Supervision of: Dr. Kory Garbiay M.D. First contact with patient: 13:26 Chief Complaint: CARDIAC ASSESSMENT Stated Complaint: SVT History of Present Illness The patient is a 31 year old male who presents to the Emergency Room with complaints of sudden, constant, sharp chest pain beginning prior to arrival. Upon arrival the patient was hypotensive and tachycardic. The patient states that he has a history of SVT and AVR. He reports that he was leaning forward to get something in his car and his chest began to hurt. The patient notes that he had a similar episode last night, took 200mg of Metoprolol, and it broke. He states that when his symptoms came on, he took 200mg of Metoprolol, but it did not help. The patient's records state that he was admitted a few days ago with AVR and discharged. He notes that he was placed on 120mg Cardiazol, once a day. The patient states that he almost lost consciousness but did not. He reports that talking worsens his shortness of breath. The patient denies alcohol and drug use. Source of History: patient Onset: prior to arrival Position: chest Quality: sharp Timing: constant Modifying Factors (Worsening): other (talking) Associated Symptoms: + SOB, No LOC Review of Systems See HPI for pertinent positives & negatives. A total of 10 systems reviewed and were otherwise negative. Past Medical & Surgical Medical Problems: (1) Atrial fibrillation (2) Discomfort of both eyes (3) Eye irritation (4) major depreesive dis (5) past psych meds (6) Rhabdomyolysis (7) Rhabdomyolysis (8) Superficial punctate keratitis Family History FH: hypertension Heart disease Social History Smoking Status: Former Smoker Alcohol Use: occasionally Drug Use: other Marital Status: single Housing Status: lives with family Occupation Status: employed Current/Historical Medications Scheduled Ascorbic Acid (Vitamin C), 1,000 MG PO DAILY Diltiazem HCl (Diltiazem HCl ER), 120 MG PO DAILY Fluoxetine (Prozac), 60 MG PO DAILY Gabapentin (Gabapentin), 600 MG PO AMPM Metoprolol Succinate (Toprol Xl), 1 TAB PO DAILY Multivitamin (Multivitamin), 1 TAB PO DAILY Naltrexone Hcl (Naltrexone Hcl), 50 MG PO QPM Paroxetine (Paxil), 10 MG PO QAM Allergies Coded Allergies: No Known Allergies (Verified , 11/05/16) Physical Exam Vital Signs Date Time Temp Pulse Resp B/P (MAP) Pulse Ox O2 Delivery O2 Flow Rate FiO2 11/05/16 14:48 93 18 132/69 96 Room Air 11/05/16 14:17 93 18 124/78 100 Nasal Cannula 2.0 11/05/16 14:05 95 11/05/16 13:49 95 18 134/72 100 Nasal Cannula 2.0 11/05/16 13:35 97 18 148/88 100 Nasal Cannula 2.0 11/05/16 13:31 192 11/05/16 13:25 95 Nasal Cannula 2.0 11/05/16 13:21 36.7 196 20 88/63 99 Room Air Physical Exam GENERAL: Patient is unwell appearing and in moderate distress. Diaphoretic, weak. Heavily muscled. HEENT: No acute trauma, normocephalic atraumatic, mucous membranes moist, no nasal congestion, no scleral icterus. NECK: No stridor, no adenopathy, no meningismus, trachea is midline. LUNGS: No dyspnea. Clear to auscultation and equal bilaterally. No wheeze, no rhonchi. HEART: Tachycardic. No murmurs, rubs, gallops appreciated. ABDOMEN: Soft, nontender, bowel sounds positive, no masses appreciated, no peritonitis. BACK: No midline tenderness, no CVA tenderness EXTREMITIES: Normal motion all extremities, no cyanosis, no edema. NEUROLOGIC: Alert and oriented, no acute motor or sensory deficits, no focal weakness, cranial nerves grossly intact. SKIN: No rash, no jaundice, no diaphoresis. Medical Decision & Procedures Medications Administered Medications (Trade) Dose Ordered Sig/Shahzad Route Start Time Stop Time Status Last Admin Dose Admin Adenosine (Adenosine IV) 9 mg STK-MED ONCE .ROUTE 11/05/16 13:27 11/05/16 13:28 DC 11/05/16 13:29 12 MG Sodium Chloride 1,000 ml @ 999 mls/hr Q1H1M STAT IV 11/05/16 13:33 11/05/16 14:33 DC 11/05/16 13:39 999 MLS/HR Metoprolol Succinate (Toprol Xl Tab) 100 mg NOW STAT PO 11/05/16 14:07 7/26/17 14:08 DC 11/05/16 14:17 100 MG ECG Indication: chest pain Rate (beats per minute): 190 Rhythm: SVT Findings: RBBB, no acute ischemic change, no ectopy Change: Repeat EKG in the same visit: Normal Sinus 97, no ectopy, no acute ischemia. ED Course 1326: The patient was evaluated in room B01. A complete history and physical exam was performed. 1327: Ordered Adenosine 12mg .ROUTE 1333: Ordered Sodium Chloride 1000 ml @ 999 mls/hr IV 1336: I discussed the patients case with Dr. Maradiaga, [facility]. He suggested the patient be started on Metoprolol XL 100mg along with Cardiazol. He will schedule the patient a follow up appointment with electrocardiology. 1338: I reevaluated the patient, and he is agreeable with the treatment plan. 1406: I reevaluated the patient. He is feeling better, and I discussed the pros and cons of started Metoprolol. 1407: Ordered Metoprolol Succinate 100mg PO 1502: Reevaluated the patient. He has an appointment with cardiology on November 11. Discussed results and discharge instructions: he verbalized understanding and agreement. The patient is ready for discharge. Medical Decision Differential: NSR, SVT, PACs, PVCs, Cardiac Dysrhythmia, Endocrine Dysfunction, Electrolyte/Metabolic Abnormality, Pulmonary Embolism, Infectious, GI, amonst other pathologies entertained. 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 He has previously admitted Testosterone use and understands the risks. While I'm sure that T isn't helping his cardiac arrhythmias I suspect he does have likely need for ablation. He is in SVT this time (last time I saw him was Afib RVR). Given 12mg adenosine with resolution of SVT. Patient feeling vastly improved. Given IV Hydration and monitored. Completely back to baseline and notes feeling well , no muscle aches, sob, cp, nausea. Reports clear urine and no distress. I do not feel that further labs indicated. Patient wishing discharge. Reviewed with Dr Maradiaga who set up EP appointment with patient on Nov 11. Advised rest and hydration next few days. RTED if worsening or other concerns. Blood Pressure Screening Patient's blood pressure: Low blood pressure Consults Time Called: 1334 Consulting Physician: Dr. Maradiaga, [facility] Returned Call: [phone] I discussed the patients case with Dr. Maradiaga, [facility]. He suggested the patient be started on Metoprolol XL 100mg along with Cardiazol. He will schedule the patient a follow up appointment with electrocardiology. Impression Primary Impression: SVT (supraventricular tachycardia) Scribe Attestation The scribe's documentation has been prepared under my direction and personally reviewed by me in its entirety. I confirm that the note above accurately reflects all work, treatment, procedures, and medical decision making performed by me. Departure Information Dispostion Home / Self-Care Prescriptions Metoprolol Succinate (TOPROL XL) 100 Mg Tab 1 TAB PO DAILY for 30 Days, #30 TAB 5 Refills Prov: Kory Garibay M.D. 11/05/16 Referrals Marquis Maradiaga M.D. Alphonso Scruggs MD Forms IMPORTANT VISIT INFORMATION Patient Instructions My [facility] Additional Instructions Please follow up with Glass Science Engineer. Dr Maradiaga notes he will try setting up an appointment with Dr Scruggs of . Return if worsening symptoms. Avoid stimulants. We will start Toprol XL 100mg daily. Continue the Cardizem 120mg Daily.
[2016-11-05] MEDS ORDERED: METOPROLOL SUCC 50MG EXT REL TAB PO STA (14:07)
[2016-11-05 14:48] VITALS: BP 132/69; O2SAT 96
[2016-11-05] MEDS ORDERED: METO1TAB68 PO (15:01)
== END 2016-11-05 15:10 | disposition home or self-care (01) ==
LOC: C.EDB 12:53
DX: I47.1 Supraventricular tachycardia (principal); I45.10 Unspecified right bundle-branch block; I48.91 Unspecified atrial fibrillation; F32.9 Major depressive disorder, single episode, unspecified; Z87.891 Personal history of nicotine dependence; Z79.899 Other long term (current) drug therapy; Z82.49 Family history of ischemic heart disease and other diseases of the circulatory system

== ENCOUNTER 2017-05-12 19:15 | Emergency (ER) | payer BC, OTHER ==
[~2017-05-12] VITALS: Ht 182.9 cm; Wt 111.0 kg
[~2017-05-12 19:15] MED LIST changes: +METO-479 PO; -OMEG10007 PO
[2017-05-12] MEDS ORDERED: ADENOSINE IV SOLN 3 MG/ML 2 ML VIAL ONE (19:23)
[2017-05-12 19:40] VITALS: TEMP 36.6; Ht 182.9 cm; Wt 111.0 kg
[2017-05-12 19:51] LABS: BASO % 0.5 %; BASO ABS # 0.03 K/uL (0-0.2); EOS % 1.1 %; EOS ABS # 0.07 K/uL (0-0.5); HEMATOCRIT 56.4 % (42-52); HEMOGLOBIN 19.1 g/dL (14.0-18.0); IG# 0.02 K/uL (0.00-0.02); LYMPH % 28.5 %; LYMPH ABS # 1.85 K/uL (1.2-3.4); MEAN CELL VOLUME 88.4 fL (80-100); MEAN CORPUSCULAR HEMOGLOBIN 29.9 pg (25-34); MEAN CORPUSCULAR HGB CONC 33.9 g/dl (32-36); MEAN PLATELET VOLUME 8.9 fL (7.4-10.4); MONO % 9.6 %; MONO ABS # 0.62 K/uL (0.11-0.59); NEUT ABS # 3.89 K/uL (1.4-6.5); PLATELET COUNT 347 K/uL (130-400); RED CELL DISTRIBUTION WIDTH CV 15.1 % (11.5-14.5); RED CELL DISTRIBUTION WIDTH SD 48.8 fL (36.4-46.3); WHITE BLOOD COUNT 6.48 K/uL (4.8-10.8)
--- NOTE | 2017-05-12 20:00 | DIAGNOSTIC IMAGING REPORT ---
SINGLE VIEW CHEST CLINICAL HISTORY: Atypical chest pain. FINDINGS: An AP, portable, upright chest radiograph is compared to study dated 11/01/2016. The examination is degraded by portable technique and patient rotation. The heart is top normal for projection. The mediastinal contour is within normal limits. The lungs and pleural spaces are clear. No pneumothorax is seen. The bony thorax is grossly intact. IMPRESSION: No acute cardiopulmonary abnormality. Electronically signed by: Kaushal Singh M.D. 05/12/2017 7:59 PM Dictated Date/Time: 05/12/2017 7:59 PM
[2017-05-12 20:11] LABS: CALCIUM 10.1 mg/dl (8.5-10.1); CREATININE 1.59 mg/dl (0.60-1.40)
[2017-05-12 20:12] LABS: POTASSIUM 3.8 mmol/L (3.5-5.1)
[2017-05-12] MEDS ORDERED: PARO10TA3 PO (20:12)
[2017-05-12 20:36] VITALS: BP 135/58; PULSE 86; O2SAT 96
--- NOTE | 2017-05-12 22:18 | EMERGENCY ROOM VISIT NOTE ---
History Report prepared by Lavelle: Mirian Blanco Under the Supervision of: Konrad RivasO. First contact with patient: 19:22 Chief Complaint: CARDIAC ASSESSMENT Stated Complaint: SVT History of Present Illness The patient is a 32 year old male who presents to the Emergency Room for a cardiac assessment. The patient states that he feels like he is in SVT. 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 He reports severe discomfort in his chest, shortness of breath, racing heart, lightheadedness, diaphoresis, and nausea. Pt denies headache, change in vision, fevers, vomiting , diarrhea, and urinary symptoms. The patient also has a history of a-fib and states that he does not take any medications for this. He admits to using a beta agonist/clenbuterol earlier today. 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 Review of Systems See HPI for pertinent positives & negatives. A total of 10 systems reviewed and were otherwise negative. Past Medical & Surgical Medical Problems: (1) Atrial fibrillation (2) Discomfort of both eyes (3) Eye irritation (4) major depreesive dis (5) past psych meds (6) Rhabdomyolysis (7) Rhabdomyolysis (8) Superficial punctate keratitis Family History FH: hypertension Heart disease Social History Smoking Status: Former Smoker Alcohol Use: occasionally Drug Use: other Marital Status: single Housing Status: lives with family Occupation Status: employed Current/Historical Medications Scheduled Ascorbic Acid (Vitamin C), 1,000 MG PO DAILY Fluoxetine (Prozac), 60 MG PO QAM Gabapentin (Gabapentin), 600 MG PO AMPM Multivitamin (Multivitamin), 1 TAB PO DAILY Naltrexone Hcl (Naltrexone Hcl), 50 MG PO QPM Paroxetine HCl (Paroxetine), 10 MG PO QAM Allergies Coded Allergies: No Known Allergies (Verified , 05/12/17) Physical Exam Vital Signs Date Time Temp Pulse Resp B/P (MAP) Pulse Ox O2 Delivery O2 Flow Rate FiO2 05/12/17 20:36 86 29 135/58 96 Room Air 05/12/17 19:40 36.6 87 20 138/52 97 Room Air 05/12/17 19:30 96 05/12/17 19:24 203 Physical Exam GENERAL: Sitting up in bed, alert, diaphoretic, ill appearing, well nourished, no distress, non-toxic EYE EXAM: normal conjunctiva. OROPHARYNX: no exudate, no erythema, lips, buccal mucosa, and tongue normal and mucous membranes are moist NECK: supple, no nuchal rigidity, no adenopathy, non-tender LUNGS: Clear to auscultation. Normal chest wall mechanics HEART: Tachycardic, no murmurs, S1 normal and S2 normal ABDOMEN: abdomen soft, non-tender, normo-active bowel sounds, no masses, no rebound or guarding. BACK: Back is symmetrical on inspection and there is no deformity, no midline tenderness, no CVA tenderness. SKIN: no rashes and no bruising UPPER EXTREMITIES: upper extremities are grossly normal. LOWER EXTREMITIES: No pitting edema. NEURO EXAM: Normal sensorium, cranial nerves II-XII grossly intact, normal speech, no gross weakness of arms, no gross weakness of legs. Medical Decision & Procedures ER Provider Diagnostic Interpretation: Radiology results as stated below per my review and the radiologist's interpretation: SINGLE VIEW CHEST CLINICAL HISTORY: Atypical chest pain. FINDINGS: An AP, portable, upright chest radiograph is compared to study dated 11/01/2016. The examination is degraded by portable technique and patient rotation. The heart is top normal for projection. The mediastinal contour is within normal limits. The lungs and pleural spaces are clear. No pneumothorax is seen. The bony thorax is grossly intact. IMPRESSION: No acute cardiopulmonary abnormality. Electronically signed by: Kaushal Singh M.D. 05/12/2017 7:59 PM Dictated Date/Time: 05/12/2017 7:59 PM Laboratory Results 05/12/17 19:20 Red Blood Count 6.38, Mean Corpuscular Volume 88.4, Mean Corpuscular Hemoglobin 29.9, Mean Corpuscular Hemoglobin Concent 33.9, Mean Platelet Volume 8.9, Neutrophils (%) (Auto) 60.0, Lymphocytes (%) (Auto) 28.5, Monocytes (%) (Auto) 9.6, Eosinophils (%) (Auto) 1.1, Basophils (%) (Auto) 0.5, Neutrophils # (Auto) 3.89, Lymphocytes # (Auto) 1.85, Monocytes # (Auto) 0.62, Eosinophils # (Auto) 0.07, Basophils # (Auto) 0.03 05/12/17 19:20 Test 05/12/17 19:20 White Blood Count 6.48 K/uL (4.8-10.8) Red Blood Count 6.38 M/uL (4.7-6.1) Hemoglobin 19.1 g/dL (14.0-18.0) Hematocrit 56.4 % (42-52) Mean Corpuscular Volume 88.4 fL (80-100) Mean Corpuscular Hemoglobin 29.9 pg (25-34) Mean Corpuscular Hemoglobin Concent 33.9 g/dl (32-36) Platelet Count 347 K/uL (130-400) Mean Platelet Volume 8.9 fL (7.4-10.4) Neutrophils (%) (Auto) 60.0 % Lymphocytes (%) (Auto) 28.5 % Monocytes (%) (Auto) 9.6 % Eosinophils (%) (Auto) 1.1 % Basophils (%) (Auto) 0.5 % Neutrophils # (Auto) 3.89 K/uL (1.4-6.5) Lymphocytes # (Auto) 1.85 K/uL (1.2-3.4) Monocytes # (Auto) 0.62 K/uL (0.11-0.59) Eosinophils # (Auto) 0.07 K/uL (0-0.5) Basophils # (Auto) 0.03 K/uL (0-0.2) RDW Standard Deviation 48.8 fL (36.4-46.3) RDW Coefficient of Variation 15.1 % (11.5-14.5) Immature Granulocyte % (Auto) 0.3 % Immature Granulocyte # (Auto) 0.02 K/uL (0.00-0.02) Anion Gap 10.0 mmol/L (3-11) Est Creatinine Clear Calc Drug Dose 84.2 ml/min Estimated GFR () 64.7 Estimated GFR (Non- 55.8 BUN/Creatinine Ratio 15.2 (10-20) Calcium Level 10.1 mg/dl (8.5-10.1) Laboratory results per my review. Medications Administered Medications (Trade) Dose Ordered Sig/Shahzad Route Start Time Stop Time Status Last Admin Dose Admin Adenosine (Adenosine Iv) 18 mg STK-MED ONCE .ROUTE 05/12/17 19:23 05/12/17 19:24 DC 05/12/17 19:46 18 MG ECG Indication: tachycardia Rate (beats per minute): 202 Rhythm: other (wide complex tachycardia) Findings: RBBB, ST depression (diffuse), prolonged QT Comparison ECG Date: repeat ECG Change: A repeat ECG reveals a NSR at 82, normal axis, normal intervals, slight J-point elevation anteriorly. This repeat ECG is unchanged from previous ECG on 2016. Patient's electrocardiogram interpreted by me. ED Course ED COURSE: Vital signs were reviewed and showed tachycardia. The patients medical record was reviewed The above diagnostic studies were performed and reviewed. ED treatments and interventions as stated above. 1921: The patient was evaluated in room B1. A complete history and physical examination was performed. 1922: Adenosine 18 mg IV 1927: The patient is feeling much better and is in a NSR on the monitor. A repeat ECG will be obtained. 1937: I reassessed the patient and he is resting comfortably. I updated him on the results. 2035: Upon reevaluation, the patient is feeling better and resting comfortably. I discussed my findings with the patient and he understands and agrees with the treatment plan. Based on the patients age, coexisting illnesses, exam and lab findings the decision to treat as an outpatient was made. The patient remained stable while under my care. The patient appeared well at the time of discharge. Medical Decision Differential diagnoses includes but is not limited to acute coronary syndrome, myocardial infarction, pericarditis, pulmonary embolus, aortic dissection, pneumonia, pneumothorax, musculoskeletal, shingles, esophageal. Patient is a 32-year-old male with extensive history of using steroids for weightlifting who presents to the ER for heart palpitations. He has a history of SVT and A. fib with RVR. He does not take any blood thinners. He did take his metoprolol today. EKG shows an SVT which is identical to his previous presentation. Based on this IV was established and he was hooked up to the pads. He is given 6 mg IV of adenosine without resolution of symptoms. Following this he was given 12 mg and he had complete resolution of all of his symptoms. After further discussion he did take the beta agonist steroid today. I favor this is the likely cause of symptoms. CBC along with BMP was remarkable for a creatinine of 1.5 and a hemoglobin of 19. Favor this is secondary to dehydration. He was given fluids. He is discharged follow-up with his front desk as an outpatient. I had a prolonged conversation with him in regards to stopping his beta agonist injections. Discussed with Pt concerning signs and symptoms to watch out for. Pt was instructed to follow up with their PCP and discussed with the patient their option to return to the ED at anytime for persistent or worsening symptoms. The appropriate anticipatory guidance and out-patient management, including indications for return to the emergency department, were explained at length to the patient and understood. Medication Reconcilliation Current Medication List: was personally reviewed by me Blood Pressure Screening Patient's blood pressure: Normal blood pressure Impression Primary Impression: SVT (supraventricular tachycardia) Critical Care I have personally spent 35 minutes of critical care time in the direct management of this patient. This includes bedside care, interpretation of diagnostic studies, and testing, discussion with consultants, patient, and family members, and other required patient management activities. This 35 minutes is in excess of all separately billable procedures. Scribe Attestation The scribe's documentation has been prepared under my direction and personally reviewed by me in its entirety. I confirm that the note above accurately reflects all work, treatment, procedures, and medical decision making performed by me. Departure Information Dispostion Home / Self-Care Referrals No Doctor, Assigned (PCP) Forms IMPORTANT VISIT INFORMATION Patient Instructions ED Tachycardia Pat PSVT, My [facility] Additional Instructions Please follow up with your primary care doctor with in the next 24 hours. Any worsening of your symptoms, please return to the ED immediately. This includes any fevers greater than 100.4, worsening pain, chest pain, shortness breath, persistent nausea, vomiting, unable to eat or drink, or any other concerning signs or symptoms from your standpoint. Please stop taking Clenbuterol as this is likely contributing to your symptoms.
== END 2017-05-12 20:52 | disposition home or self-care (01) ==
LOC: C.EDB 19:16
DX: I47.1 Supraventricular tachycardia (principal); F32.9 Major depressive disorder, single episode, unspecified; Z79.891 Long term (current) use of opiate analgesic; Z87.891 Personal history of nicotine dependence; Z82.49 Family history of ischemic heart disease and other diseases of the circulatory system

== ENCOUNTER 2017-05-14 19:06 | Emergency (ER) | payer OTHER ==
[~2017-05-14] VITALS: Ht 182.9 cm; Wt 112.5 kg
[~2017-05-14 19:06] MED LIST changes: -DLCSR120 PO; -METO-479 PO; +PARO10TA3 PO; -PARO1TAB27 PO
[2017-05-14 19:22] VITALS: Ht 182.9 cm; Wt 112.5 kg
[2017-05-14] MEDS: SODIUM CHLORIDE 0.9% 1000ML 1,000 ML IV SCH ×2 (19:45→21:14)
[2017-05-14] MEDS ORDERED: ADENOSINE IV SOLN 3 MG/ML 2 ML VIAL ONE (19:53)
[2017-05-14 20:18] LABS: BASO % 0.2 %; BASO ABS # 0.02 K/uL (0-0.2); EOS % 2.4 %; EOS ABS # 0.21 K/uL (0-0.5); HEMATOCRIT 51.4 % (42-52); HEMOGLOBIN 17.5 g/dL (14.0-18.0); IG# 0.01 K/uL (0.00-0.02); LYMPH % 17.3 %; MEAN CELL VOLUME 88.5 fL (80-100); MEAN CORPUSCULAR HEMOGLOBIN 30.1 pg (25-34); MEAN PLATELET VOLUME 8.9 fL (7.4-10.4); MONO % 7.8 %; MONO ABS # 0.68 K/uL (0.11-0.59); NEUT % 72.2 %; NEUT ABS # 6.27 K/uL (1.4-6.5); PLATELET COUNT 315 K/uL (130-400); RED CELL DISTRIBUTION WIDTH SD 48.1 fL (36.4-46.3); WHITE BLOOD COUNT 8.69 K/uL (4.8-10.8)
[2017-05-14 20:30] LABS: CALCIUM 9.2 mg/dl (8.5-10.1); CREATININE 1.31 mg/dl (0.60-1.40); POTASSIUM 3.7 mmol/L (3.5-5.1)
[2017-05-14 21:47] VITALS: BP 131/63; PULSE 74; TEMP 36.5; O2SAT 94
--- NOTE | 2017-05-15 00:36 | EMERGENCY ROOM VISIT NOTE ---
History Report prepared by Lavelle: Bettye Whitman Under the Supervision of: Dr. Samm Cruz D.O. First contact with patient: 19:27 Chief Complaint: TACHYCARDIA Stated Complaint: SVT History of Present Illness The patient is a 32 year old male who presents to the Emergency Room with complaints of persistent tachycardia starting around 1.5 hours ago. The patient was seen in the ED 2 days ago with SVT. He has a history of SVT. His symptoms today feel like his previous episodes of SVT. His symptoms started while he was standing. He reports heart racing, chest tightness, SOB, and nausea. He tried taking metoprolol to no significant relief. He denies any diarrhea, vomiting, or other complaints. He uses clenbuterol daily. He cut his dose in half yesterday and today. 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 He feels like going back to work might trigger his SVT. Source of History: patient Onset: 1.5 hours ago Position: other (global) Quality: other (tachycardia) Timing: other (persistent) Associated Symptoms: + chest pain, + SOB, + nausea, No vomiting, No diarrhea Review of Systems See HPI for pertinent positives & negatives. A total of 10 systems reviewed and were otherwise negative. Past Medical & Surgical Medical Problems: (1) Atrial fibrillation (2) Discomfort of both eyes (3) Eye irritation (4) major depreesive dis (5) past psych meds (6) Rhabdomyolysis (7) Rhabdomyolysis (8) Superficial punctate keratitis Family History FH: hypertension Heart disease Social History Smoking Status: Former Smoker Alcohol Use: occasionally Drug Use: other Marital Status: single Housing Status: lives with family Occupation Status: employed Current/Historical Medications Scheduled Ascorbic Acid (Vitamin C), 1,000 MG PO DAILY Fluoxetine (Prozac), 60 MG PO QAM Gabapentin (Gabapentin), 600 MG PO AMPM Multivitamin (Multivitamin), 1 TAB PO DAILY Naltrexone Hcl (Naltrexone Hcl), 50 MG PO QPM Paroxetine HCl (Paroxetine), 10 MG PO QAM Allergies Coded Allergies: No Known Allergies (Verified , 05/14/17) Physical Exam Vital Signs Date Time Temp Pulse Resp B/P (MAP) Pulse Ox O2 Delivery O2 Flow Rate FiO2 05/14/17 21:47 36.5 74 18 131/63 94 05/14/17 20:47 79 18 131/76 93 Room Air 05/14/17 20:13 88 16 135/67 95 Room Air 05/14/17 19:55 87 05/14/17 19:33 205 05/14/17 19:22 36.5 214 20 139/93 98 Room Air Physical Exam GENERAL: Sitting up in bed, diaphoretic, mild distress EYE EXAM: normal conjunctiva. OROPHARYNX: no exudate, no erythema, lips, buccal mucosa, and tongue normal and mucous membranes are moist NECK: supple, no nuchal rigidity, no adenopathy, non-tender LUNGS: Clear to auscultation. Normal chest wall mechanics HEART: tachycardic, no murmurs, S1 normal and S2 normal ABDOMEN: abdomen soft, non-tender, normo-active bowel sounds, no masses, no rebound or guarding. BACK: Back is symmetrical on inspection and there is no deformity, no midline tenderness, no CVA tenderness. SKIN: no rashes and no bruising UPPER EXTREMITIES: upper extremities are grossly normal. LOWER EXTREMITIES: No pitting edema. Calves equal bilaterally. NEURO EXAM: Normal sensorium, cranial nerves II-XII grossly intact, normal speech, no gross weakness of arms, no gross weakness of legs. Medical Decision & Procedures Laboratory Results 05/14/17 19:35 Red Blood Count 5.81, Mean Corpuscular Volume 88.5, Mean Corpuscular Hemoglobin 30.1, Mean Corpuscular Hemoglobin Concent 34.0, Mean Platelet Volume 8.9, Neutrophils (%) (Auto) 72.2, Lymphocytes (%) (Auto) 17.3, Monocytes (%) (Auto) 7.8, Eosinophils (%) (Auto) 2.4, Basophils (%) (Auto) 0.2, Neutrophils # (Auto) 6.27, Lymphocytes # (Auto) 1.50, Monocytes # (Auto) 0.68, Eosinophils # (Auto) 0.21, Basophils # (Auto) 0.02 05/14/17 19:35 Test 05/14/17 19:35 White Blood Count 8.69 K/uL (4.8-10.8) Red Blood Count 5.81 M/uL (4.7-6.1) Hemoglobin 17.5 g/dL (14.0-18.0) Hematocrit 51.4 % (42-52) Mean Corpuscular Volume 88.5 fL (80-100) Mean Corpuscular Hemoglobin 30.1 pg (25-34) Mean Corpuscular Hemoglobin Concent 34.0 g/dl (32-36) Platelet Count 315 K/uL (130-400) Mean Platelet Volume 8.9 fL (7.4-10.4) Neutrophils (%) (Auto) 72.2 % Lymphocytes (%) (Auto) 17.3 % Monocytes (%) (Auto) 7.8 % Eosinophils (%) (Auto) 2.4 % Basophils (%) (Auto) 0.2 % Neutrophils # (Auto) 6.27 K/uL (1.4-6.5) Lymphocytes # (Auto) 1.50 K/uL (1.2-3.4) Monocytes # (Auto) 0.68 K/uL (0.11-0.59) Eosinophils # (Auto) 0.21 K/uL (0-0.5) Basophils # (Auto) 0.02 K/uL (0-0.2) RDW Standard Deviation 48.1 fL (36.4-46.3) RDW Coefficient of Variation 15.0 % (11.5-14.5) Immature Granulocyte % (Auto) 0.1 % Immature Granulocyte # (Auto) 0.01 K/uL (0.00-0.02) Anion Gap 8.0 mmol/L (3-11) Est Creatinine Clear Calc Drug Dose 102.9 ml/min Estimated GFR () 81.8 Estimated GFR (Non- 70.5 BUN/Creatinine Ratio 18.6 (10-20) Calcium Level 9.2 mg/dl (8.5-10.1) Chemistry Specimen Hemolysis Laboratory results per my review. Medications Administered Medications (Trade) Dose Ordered Sig/Shahzad Route Start Time Stop Time Status Last Admin Dose Admin Sodium Chloride 1,000 ml @ 999 mls/hr Q1H1M IV 05/14/17 19:45 05/14/17 21:45 DC 05/14/17 21:14 999 MLS/HR Adenosine (Adenosine Iv) 18 mg STK-MED ONCE .ROUTE 05/14/17 19:53 05/14/17 19:54 DC 05/14/17 19:45 18 MG ECG Indication: palpitations Rate (beats per minute): 203 Rhythm: other (wide complex tachycardia) Findings: RBBB, ST depression (diffuse), other (right axis) Change: Patient's electrocardiogram interpreted by me. ED Course ED COURSE: Vital signs were reviewed and showed normal vitals. The patients medical record was reviewed The above diagnostic studies were performed and reviewed. ED treatments and interventions as stated above. 1927: The patient was evaluated in room B10. A complete history and physical examination was performed. 1939: Adenosine 12 mg IV. 1944: Repeat EKG as interpreted by me at this time shows sinus rhythm, rate 85, normal axis, J point elevation anterior, unchanged from previous. 1944: NSS 1000 ml @ 999 mls/hr IV. 2032: I reevaluated the patient. He is feeling great. 2052: I discussed the patient's case with Dr. Wheeler, [facility] cardiology. He recommends bringing the patient in for observation. 2058: Upon reevaluation, the patient is resting comfortably. I discussed my findings with the patient and he understands and agrees with the treatment plan. He refuses to stay for observation. Based on the patients age, coexisting illnesses, exam and lab findings the decision to treat as an outpatient was made. The patient remained stable while under my care. The patient appeared well at the time of discharge. Medical Decision Differential diagnoses includes but is not limited to acute coronary syndrome, myocardial infarction, pericarditis, pulmonary embolus, aortic dissection, pneumonia, pneumothorax, musculoskeletal, shingles, esophageal. Patient is a 32-year-old male who presents to ER with chest pain and shortness breath and heart fluttering. He has been here multiple times before for a CT in [facility]. I saw him 2 days ago for same complaint. EKG shows a wide-complex tachycardia. This is consistent with his multiple previous presentations. He was placed on the monitor and placed on the pads. He was given 12 mg of IV adenosine. Heart rate improved into normal sinus rhythm. A complete resolution of symptoms. CBC and BMP were obtained. EKG return to his baseline. I recommended admission and I did discuss case with cardiology and they agreed. Patient declined and was discharged. He notes that he did prior to arrival take clenbuterol again as did the other day. Discussed the case with care management who will attempt to get the patient in with Dr. Rey tomorrow. Discussed with Pt concerning signs and symptoms to watch out for. Pt was instructed to follow up with their PCP and discussed with the patient their option to return to the ED at anytime for persistent or worsening symptoms. The appropriate anticipatory guidance and out-patient management, including indications for return to the emergency department, were explained at length to the patient and understood. Medication Reconcilliation Current Medication List: was personally reviewed by me Blood Pressure Screening Patient's blood pressure: Normal blood pressure Blood pressure disposition: Did not require urgent referral Consults Time Called: 2050 Consulting Physician: Dr. Wheeler [facility] cardiology Returned Call: 2052 I discussed the patient's case with him. He recommends bringing the patient in for observation. Impression Primary Impression: SVT (supraventricular tachycardia) Additional Impression: Anabolic steroid abuse Critical Care I have personally spent 35 minutes of critical care time in the direct management of this patient. This includes bedside care, interpretation of diagnostic studies, and testing, discussion with consultants, patient, and family members, and other required patient management activities. This 35 minutes is in excess of all separately billable procedures. Scribe Attestation The scribe's documentation has been prepared under my direction and personally reviewed by me in its entirety. I confirm that the note above accurately reflects all work, treatment, procedures, and medical decision making performed by me. Departure Information Dispostion Home / Self-Care Referrals No Doctor, Assigned (PCP) Ector Saucedo, DO Forms HOME CARE DOCUMENTATION FORM, IMPORTANT VISIT INFORMATION, WORK / SCHOOL INSTRUCTIONS Patient Instructions ED Tachycardia Pat PSVT, My [facility], Treatment for Supraventricular Tachycardia SVT Additional Instructions Please follow up with your primary care doctor with in the next 24 hours. Any worsening of your symptoms, please return to the ED immediately. This includes any fevers greater than 100.4, worsening pain, chest pain, shortness breath, persistent nausea, vomiting, unable to eat or drink, or any other concerning signs or symptoms from your standpoint. Please stop taking clenbuterol. You must follow up with urology as soon as possible. Please call tomorrow morning. Problem Qualifiers
== END 2017-05-14 21:47 | disposition home or self-care (01) ==
LOC: C.EDB 19:07
DX: I47.1 Supraventricular tachycardia (principal); F55.3 Abuse of steroids or hormones; I48.91 Unspecified atrial fibrillation; I45.10 Unspecified right bundle-branch block; F32.9 Major depressive disorder, single episode, unspecified; M62.82 Rhabdomyolysis; Z87.891 Personal history of nicotine dependence; Z82.49 Family history of ischemic heart disease and other diseases of the circulatory system

== ENCOUNTER 2017-07-15 22:57 | Emergency (ER) | payer SELFPAY ==
[~2017-07-15] VITALS: Ht 182.9 cm; Wt 108.9 kg
[2017-07-15 22:58] VITALS: TEMP 36.5; Ht 182.9 cm; Wt 108.9 kg
--- NOTE | 2017-07-15 23:15 | EMERGENCY ROOM VISIT NOTE ---
History Report prepared by Lavelle: Ad Weller Under the Supervision of: Dr. Niko Michelle D.O. First contact with patient: 23:04 Chief Complaint: IRREGULAR HEARTBEAT Stated Complaint: IRREGULAR HEARTBEAT, LIGHT HEADED, POSSIBLE SVT History of Present Illness The patient is a 32 year old male who presents to the Emergency Room with complaints of an improving irregular heart beat that began 2 hours ago. He states he was exercising when he noticed his irregular heart beat. He states that he was sweating profusely and felt lightheaded. He states that he has been to the ED multiple times for this same problem and states his current episode is worse than previous. He denies taking any Beta Blockers. Of note, he follows up with Dr. Saucedo. Source of History: patient Onset: 2 hours ago Position: chest Quality: other (irregular heart beat) Timing: other (improving) Associated Symptoms: + diaphoresis Note: Patient reports he was lightheaded. Review of Systems See HPI for pertinent positives & negatives. A total of 10 systems reviewed and were otherwise negative. Past Medical & Surgical Medical Problems: (1) Atrial fibrillation (2) Discomfort of both eyes (3) Eye irritation (4) major depreesive dis (5) past psych meds (6) Rhabdomyolysis (7) Rhabdomyolysis (8) Superficial punctate keratitis Family History FH: hypertension Heart disease Social History Smoking Status: Never Smoker Alcohol Use: occasionally Drug Use: other Marital Status: single Housing Status: lives with family Occupation Status: employed Current/Historical Medications Scheduled Ascorbic Acid (Vitamin C), 1,000 MG PO DAILY Fluoxetine (Prozac), 60 MG PO QAM Gabapentin (Gabapentin), 600 MG PO AMPM Multivitamin (Multivitamin), 1 TAB PO DAILY Naltrexone Hcl (Naltrexone Hcl), 50 MG PO QPM Paroxetine HCl (Paroxetine), 10 MG PO QAM Allergies Coded Allergies: No Known Allergies (Verified , 05/14/17) Physical Exam Vital Signs Date Time Temp Pulse Resp B/P (MAP) Pulse Ox O2 Delivery O2 Flow Rate FiO2 07/15/17 22:58 36.5 209 18 109/64 100 Room Air Physical Exam CONSTITUTIONAL/VITAL SIGNS: Reviewed / noted above. GENERAL: Non-toxic in appearance. INTEGUMENTARY: Warm, dry, and [place]. HEAD: Normocephalic. EYES: without scleral icterus or trauma. ENT/OROPHARYNX: clear and moist. LYMPHADENOPATHY/NECK: Is supple without lymphadenopathy or meningismus. RESPIRATORY: Lungs clear and equal. CARDIOVASCULAR: Regular rate and rhythm. GI/ABDOMEN: Soft and nontender. No organomegaly or pulsatile mass. No rebound or guarding. Normal bowel sounds. EXTREMITIES: Warm and well perfused. BACK: No CVA tenderness. NEUROLOGICAL: Intact without focal deficits. PSYCHIATRIC: normal affect. MUSCULOSKELETAL: Normally developed with good muscle tone. Medical Decision & Procedures ECG Per My Interpretation Indication: other (SVT) Rate (beats per minute): 90 ED Course 2304: Previous medical records were reviewed. The patient was evaluated in room B1. A complete history and physical examination was performed. 2325: On reevaluation, the patient is resting. I discussed the results and findings with the patient. He verbalized agreement of the treatment plan. He was discharged home. Medical Decision the differential was considered includes acute myocardial infarction, acute coronary syndrome, myocarditis, pericarditis, pericardial effusions /tamponad, esophageal perforation, thoracic aortic dissection, pulmonary embolism, pneumonia, pneumothorax, pancreatitis, shingles, acute cholecystitis, perforated abdominal viscus. This is a 32-year-old male who presents to the ED with a chief complaint of palpitations. He has a long-standing history of SVT. The patient presented to the emergency department with SVT. He was brought back to room B1 where he laid down on the bed and subsequently his SVT broke. His 12-lead EKG reveals a sinus rhythm at a rate of 90. The patient states that his symptoms resolve. He did not desire additional workup at this time since this is a chronic and recurrent issue. He was felt to be stable for discharge. Medication Reconcilliation Current Medication List: was personally reviewed by me Blood Pressure Screening Patient's blood pressure: Normal blood pressure Blood pressure disposition: Did not require urgent referral Impression Primary Impression: SVT (supraventricular tachycardia) Scribe Attestation The scribe's documentation has been prepared under my direction and personally reviewed by me in its entirety. I confirm that the note above accurately reflects all work, treatment, procedures, and medical decision making performed by me. Departure Information Dispostion Home / Self-Care Referrals No Doctor, Assigned (PCP) Patient Instructions My [facility] Additional Instructions Follow-up with your doctor for further care and evaluation in 1-2 days. Return to the emergency department for worsening or new symptoms or any concerns. You have been examined and treated today on an emergency basis only. This is not a substitute for, or an effort to provide, complete comprehensive medical care. It is impossible to recognize and treat all injuries or illnesses in a single emergency department visit. It is therefore important that you follow up closely with your doctor. Call as soon as possible for an appointment.
[2017-07-15 23:21] VITALS: BP 126/77; PULSE 67; O2SAT 98
== END 2017-07-15 23:25 | disposition home or self-care (01) ==
LOC: C.EDB 22:58
DX: I47.1 Supraventricular tachycardia (principal); I48.91 Unspecified atrial fibrillation; Z82.49 Family history of ischemic heart disease and other diseases of the circulatory system